=== PATIENT | male | born 1995 | race African-American/Black ===

== ENCOUNTER 2022-12-21 12:31 | Emergency (ER) | payer MEDICAID, OTHER ==
[~2022-12-21] VITALS: Ht 177.8 cm; Wt 77.0 kg
[2022-12-21 12:33] VITALS: BP 107/53
[2022-12-21 15:13] LABS: CLARITY URINE CLEAR (CLEAR); COLOR URINE YELLOW (YELLOW); KETONES URINE 3+ (NEGATIVE); LEUKOCYTE ESTERASE URINE TRACE (NEGATIVE); NITRITE URINE NEGATIVE (NEGATIVE); OCCULT BLOOD URINE NEGATIVE (NEGATIVE); PH URINE 6.5 (4.5-8.0); PROTEIN URINE NEGATIVE (NEGATIVE); SPECIFIC GRAVITY URINE 1.016 (1.005-1.030)
== END 2022-12-21 16:57 ==
LOC: ER 14:06
DX: R68.89 Other general symptoms and signs (principal); F12.10 Cannabis abuse, uncomplicated
CPT/HCPCS: 81003; 99283